=== PATIENT | female | born 1950 | race Hispanic/Latino ===

== ENCOUNTER 2017-11-10 14:10 | Emergency (ER) | payer SELFPAY ==
[2017-11-10 15:01] LABS: BASOPHILS % (AUTO) 0.8 % (0.0-5.0); EOSINOPHILS % (AUTO) 7.4 % (0.0-8.0); HEMATOCRIT 42.3 % (36-48); LYMPHOCYTES % (AUTO) 35.3 % (21.0-51.0); MEAN CORPUSCULAR HEMOGLOBIN 30.3 pg (27.0-33.0); MEAN CORPUSCULAR HGB CONC 34.6 g/dL (32.0-36.0); MEAN CORPUSCULAR VOLUME 87.6 fL (79-99); MONOCYTES % (AUTO) 5.9 % (3.0-13.0); NEUTROPHILS % (AUTO) 50.6 % (40.0-77.0); NUCLEATED RED BLOOD CELLS 0.1 % (0.0-0.19); PLATELET COUNT (AUTO) 189 K/uL (130-400); RED BLOOD CELL COUNT(AUTO) 4.83 MIL/uL (4.00-5.50); RED CELL DISTRIBUTION WIDTH 13.5 % (11.0-15.5); WHITE BLOOD COUNT (AUTO) 7.3 K/uL (4.8-10.8)
[2017-11-10 15:14] LABS: CREATININE 0.8 mg/dL (0.5-1.5); POTASSIUM 3.9 mmol/L (3.5-5.1)
[2017-11-10 15:19] LABS: ALBUMIN 4.3 g/dL (3.5-5.0); BILIRUBIN,TOTAL 0.5 mg/dL (0.2-1.0); TOTAL PROTEIN, SERUM 8.5 g/dL (6.0-8.3)
[2017-11-10] MEDS ORDERED: SODIUM CHLORIDE 0.9% 1000ML 1,000 ML IV ONE (15:30)
[2017-11-10] MEDS ORDERED: MECLIZINE HCL 25 MG TABLET ONE (15:31)
[2017-11-10] MEDS ORDERED: ONDANSETRON HCL MDV 20ML 2 MG/ML VIAL ONE (15:32)
[2017-11-10 16:02] LABS: APPEARANCE,URINE Clear (CLEAR); BILIRUBIN,URINE Negative (NEGATIVE); COLOR,URINE Yellow (YELLOW); GLUCOSE, URINE (UA) Negative (NEGATIVE); KETONES,URINE Negative (NEGATIVE); LEUKOCYTE ESTERASE ,URINE Negative (NEGATIVE); NITRATE,URINE Negative (NEGATIVE); OCCULT BLOOD,URINE Trace (NEGATIVE); PH,URINE 6.5 (5.0-8.0); PROTEIN,URINE Negative (NEGATIVE); UROBILINOGEN,URINE 0.2 mg/dL (0.2-1.0)
[2017-11-10 16:23] LABS: BACTERIA,URINE None Seen /HPF (None Seen); RBC,URINE None Seen /HPF (0-1); WBC,URINE None Seen /HPF (0-1)
[2017-11-10 16:24] LABS: SQUAMOUS EPITHELIAL CELL,UR 0-2 /LPF (0-2)
== END 2017-11-10 16:28 | disposition home or self-care (01) ==
LOC: EDH 14:10
DX: R20.2 Paresthesia of skin (principal); R42 Dizziness and giddiness; R11.2 Nausea with vomiting, unspecified; R63.0 Anorexia; E11.9 Type 2 diabetes mellitus without complications; E78.5 Hyperlipidemia, unspecified; Z95.0 Presence of cardiac pacemaker
CPT/HCPCS: 36415; 80053; 81001; 83690; 84484; 85025; 93005; 96361; 96374; 99285; J7030

== ENCOUNTER 2025-08-05 08:33 | Day surgery (SDC) | payer OTHER ==
[2025-08-01 10:09] LABS: IMMATURE GRANULOCYTE ABSOLUTE 0.02 K/uL (0-1); NUCLEATED RED BLOOD CELLS 0.0 % (0.0-0.19); PLATELET COUNT (AUTO) 270 K/uL (130-400); RED BLOOD CELL COUNT(AUTO) 3.87 MIL/uL (4.00-5.50); RED CELL DISTRIBUTION WIDTH 13.1 % (11.0-15.5); WHITE BLOOD COUNT (AUTO) 7.4 K/uL (4.8-10.8)
--- NOTE | 2025-08-01 10:11 | EKG ---
[facility] Test Date: 2025-08-01 Test Time: 10:04:43 Pat Name: JOE MUÑOZ Department: [facility] Room: Gender: F Sap Analyst: [id number] : [id number] Requested By: Galina MARCUS Order Number: [id number] Reading MD: Jacquie Perez Measurements Intervals [place] Rate: 74 P: 39 TN: 127 QRS: -12 QRSD: 113 T: 51 QT: 460 QTc: 512 Interpretive Statements Sinus rhythm Atrial premature complexes Probable left ventricular hypertrophy Prolonged QT interval Compared to ECG 11/10/2017 14:35:11 Atrial premature complex(es) now present Prolonged QT interval now present Incomplete right bundle-branch block no longer present Myocardial infarct finding no longer present Electronically Signed On 08-01-2025 21:14:53 [employer] by Jacquie Perez Please click the below link to view image of tracing.
[2025-08-01 10:15] LABS: CREATININE 0.9 mg/dL (0.5-1.0); GLOMERULAR FILTR. RATE CALC 68.0 mL/min (>90); GLUCOSE,RANDOM 94.0 mg/dL (70-105); SODIUM SERUM 141.0 mmol/L (136-145); UREA NITROGEN, BLOOD 11.0 mg/dL (7-18)
[2025-08-01 10:18] LABS: INR 0.97 (0.85-1.15)
[2025-08-01 10:27] VITALS: BP 131/60; PULSE 71; RESP 18; TEMP 97.6
[2025-08-05] VITALS (8 sets, daily range): BP systolic 111–148; BP diastolic 49–69; PULSE 62–79; RESP 13–15; TEMP 97.3–97.4
[~2025-08-05] VITALS: Ht 157.5 cm; Wt 56.3 kg
[2025-08-05] MEDS ORDERED: LIDOCAINE HCL 1% MDV 50ML VIAL ONE (11:46)
[2025-08-05] MEDS ORDERED: SODIUM BICARB 50MEQ 50ML VIAL 50 ML ONE (12:07)
[2025-08-05] MEDS ORDERED: MIDAZOLAM HCL 1 MG/ML 2ML VIAL ONE ×2 (12:16→12:21)
--- NOTE | 2025-08-05 13:30 | NUR ---
PT ARRIVED FROM [facility]BON[facility] TESTER VSS NAD PRESSURE DRESSING TO LEFT CHEST
--- NOTE | 2025-08-05 16:55 | NUR ---
BOTH PT AND DAUGHTER GIVEN VERBAL AND WRITTEN DISCHARGE INSTRUCTIONS. IV REMOVED SITE ASYMPTOMATIC. DAUGHTER JUST CALLING RIDE NOW TO TRACKWALKER PT.
--- NOTE | 2025-08-05 17:15 | NUR ---
PT TAKEN OUT VIA WHEELCHAIR DAUGHTER DRIVING
== END 2025-08-05 17:24 | disposition home or self-care (01) ==
LOC: DAH 08:33
PROVIDERS: ATTEND Internal Medicine Cardiovascular Disease
DX: I48.0 Paroxysmal atrial fibrillation (principal); I25.10 Atherosclerotic heart disease of native coronary artery without angina pectoris; I25.5 Ischemic cardiomyopathy; I11.0 Hypertensive heart disease with heart failure; I50.42 Chronic combined systolic (congestive) and diastolic (congestive) heart failure; E11.9 Type 2 diabetes mellitus without complications; E78.2 Mixed hyperlipidemia; I87.2 Venous insufficiency (chronic) (peripheral); Z79.82 Long term (current) use of aspirin; Z79.899 Other long term (current) drug therapy; Z98.890 Other specified postprocedural states
CPT/HCPCS: 80048; 85025; 85610; 85730; 36415; 93005; 33263; 99156; 99157 ×2; A4223 ×3; C1721; J3010; J0690 ×2; J0665; J3490 ×2; J2250 ×2; A4215; A6251; A4222; A4221; A4663; A4216; A4606